=== PATIENT | female | born 1935 | race Caucasian/White ===

== ENCOUNTER 2017-06-09 07:47 | Day surgery (SDC) | payer MEDICARE ==
[~2017-06-09] VITALS: Ht 162.6 cm; Wt 90.7 kg
[~2017-06-09 07:47] MED LIST: ACCUPRIL5 MG PO; AMLODIPINE; AMLODIPINE5 MG PO; ANTIVERT OR; ARIMIDEX1 MG PO; ASPIRIN EC81 MG PO; BABY ASPIRIN81 MG OR; BENICAR HCT1 TA1; BENICAR HCT1 TA1 OR; BENICAR HCT1 TA1 PO; BENICAR40 MG PO; CEFTIN500 MG PO; COREG25 MG OR; COUMADIN2.5 MG PO; COUMADIN5 MG OR; COUMADIN5 MG PO; DIOVAN HC2 PO; ERYTHROCIN500 MG OR; FLONASE AL50 MCG/ACT; GUANFACINE1 MG PO; K-DUR/KLOR-CON10 MEQ OR; LASIX20 MG OR; LORTAB5 PO; MAG-OX 400400 MG OR; SYMBICORT1 AE1 IN; VENTOLIN HFA IN
[2017-06-09 10:45] VITALS: BP 120/60
== END 2017-06-09 10:55 | disposition home or self-care (01) ==
LOC: ENDO 07:47 → ORM 08:30 → ENDO 08:45 → ORM 08:45 → ENDO 09:45
PROVIDERS: ATTEND Surgery
PROC: 0DJD8ZZ Inspection of Lower Intestinal Tract, Via Natural or Artificial Opening Endoscopic (ICD-10-PCS; principal; 2017-06-09)
DX: R19.7 Diarrhea, unspecified (principal); K57.30 Diverticulosis of large intestine without perforation or abscess without bleeding; I48.91 Unspecified atrial fibrillation; J44.9 Chronic obstructive pulmonary disease, unspecified; I11.0 Hypertensive heart disease with heart failure; I50.9 Heart failure, unspecified; Z85.3 Personal history of malignant neoplasm of breast

== ENCOUNTER 2018-10-04 10:41 | Outpatient (REF) | payer MEDICARE ==
[~2018-10-04 10:41] MED LIST changes: +WARFARIN2.5 MG PO
== END 2018-10-04 13:28 | disposition home or self-care (01) ==
LOC: INF 10:41
PROVIDERS: ATTEND Internal Medicine Hematology & Oncology
PROC: 3C1ZX8Z Irrigation of Indwelling Device using Irrigating Substance, External Approach (ICD-10-PCS; principal; 2018-10-04)
DX: M89.9 Disorder of bone, unspecified (principal); Z45.2 Encounter for adjustment and management of vascular access device

== ENCOUNTER 2019-02-21 15:06 | Inpatient (IN) | payer MEDICARE ==
[~2019-02-21] VITALS: Ht 162.6 cm; Wt 95.8 kg
[~2019-02-21 15:06] MED LIST changes: +HYDROCO/APAP1 T11 PO; +LOSARTAN/HCT1 TA1 PO; +STIOLTO RESPIMA1 AER PO
[2019-02-27 08:07] LABS: HEMATOCRIT 36.8 % (37.0-47.0); HEMOGLOBIN 11.6 g/dl (12.0-16.0); IMMATURE GRANULOCYTES 0.2 % (0.0-5.0); MEAN CELL VOLUME 93.9 fL CALC (80.0-100.0); MEAN CORPUSCULAR HGB 29.6 pG CALC (26.0-32.0); MEAN CORPUSCULAR HGB CONC 31.5 g/L CALC (32.0-36.0); NEUT# 3.26 thou/uL (2.00-7.15); RED BLOOD COUNT 3.92 mill/uL (4.20-5.60); RED CELL DISTRI WIDTH 13.8 % (11.5-15.5)
[2019-02-27 08:24] LABS: ACT PARTIAL THROMBO TIME 25.5 SECONDS (20.0-32.5); PROTHROMBIN TIME 11.5 SECONDS (9.0-12.5)
[2019-02-27 08:29] LABS: ALKALINE PHOSPHATASE 67 u/l (38-126); ANION GAP 11 (6-22 (CALC)); BUN 15 mg/dL (8-23); BUN/CREATININE RATIO 23 (12-20 (CALC)); CARBON DIOXIDE 34 mmol/l (22-30); CHLORIDE 97 mmol/l (95-108); CREATININE 0.6 mg/dL (0.5-1.0); GFR > 60 ML/MIN (>=60 (CALC)); GFR FOR AFR.AMER. > 60 ML/MIN (>=60 (CALC)); POTASSIUM 4.2 mmol/l (3.5-5.1); SGOT/AST 29 u/l (9-36); SODIUM 137 mmol/l (137-146); TOTAL PROTEIN 6.5 g/dL (6.3-8.2)
[2019-02-27 08:36] LABS: BILIRUBIN, TOTAL 1.3 mg/dL (0.0-1.4)
[2019-02-27 08:59] LABS: INTERNATIONAL NORMALIZED RATIO 1.1 RATIO (0.7-1.3)
[2019-02-27 16:05] VITALS: BP 181/69
[2019-02-27 16:40] VITALS: BP 176/65
[2019-02-27 16:55] VITALS: BP 187/85
[2019-02-27 17:10] VITALS: BP 170/66
[2019-02-27 17:47] VITALS: BP 153/87
[2019-02-27 19:43] VITALS: BP 120/55
[2019-02-28] VITALS: BP 145/63
[2019-02-28 04:05] VITALS: BP 153/64
[2019-02-28 05:30] LABS: HEMATOCRIT 30.1 % (37.0-47.0); HEMOGLOBIN 9.3 g/dl (12.0-16.0)
[2019-02-28 05:43] LABS: INTERNATIONAL NORMALIZED RATIO 1.2 RATIO (0.7-1.3); PROTHROMBIN TIME 12.7 SECONDS (9.0-12.5)
[2019-02-28 08:01] VITALS: BP 137/58
[2019-02-28 11:10] VITALS: BP 134/50
[2019-02-28 15:23] VITALS: BP 147/57
[2019-02-28 19:19] VITALS: BP 165/59
[2019-03-01 04:04] VITALS: BP 143/59
[2019-03-01 04:41] LABS: HEMOGLOBIN 10.1 g/dl (12.0-16.0); MEAN CELL VOLUME 94.1 fL CALC (80.0-100.0); MEAN CORPUSCULAR HGB 29.7 pG CALC (26.0-32.0); MEAN CORPUSCULAR HGB CONC 31.6 g/L CALC (32.0-36.0); RED BLOOD COUNT 3.4 mill/uL (4.20-5.60); RED CELL DISTRI WIDTH 13.5 % (11.5-15.5)
[2019-03-01 04:56] LABS: INTERNATIONAL NORMALIZED RATIO 1.2 RATIO (0.7-1.3); PROTHROMBIN TIME 12.4 SECONDS (9.0-12.5)
[2019-03-01 05:01] LABS: ANION GAP 10 (6-22 (CALC)); BUN 13 mg/dL (8-23); BUN/CREATININE RATIO 24 (12-20 (CALC)); CARBON DIOXIDE 31 mmol/l (22-30); CHLORIDE 95 mmol/l (95-108); CREATININE 0.5 mg/dL (0.5-1.0); GFR > 60 ML/MIN (>=60 (CALC)); GFR FOR AFR.AMER. > 60 ML/MIN (>=60 (CALC)); SODIUM 132 mmol/l (137-146)
[2019-03-01 09:04] VITALS: BP 123/60
[2019-03-01 11:33] VITALS: BP 110/40
[2019-03-01 16:00] VITALS: BP 155/59
[2019-03-01 19:32] VITALS: BP 124/58
[2019-03-01 21:27] VITALS: BP 139/67
[2019-03-02 00:18] VITALS: BP 118/53
[2019-03-02 05:03] VITALS: BP 115/56
[2019-03-02 05:10] LABS: HEMATOCRIT 30.4 % (37.0-47.0); HEMOGLOBIN 9.5 g/dl (12.0-16.0)
[2019-03-02 05:19] LABS: INTERNATIONAL NORMALIZED RATIO 1.3 RATIO (0.7-1.3); PROTHROMBIN TIME 13.5 SECONDS (9.0-12.5)
[2019-03-02 08:43] VITALS: BP 133/65
[2019-03-02 11:05] VITALS: BP 143/68
[2019-03-02 15:43] VITALS: BP 145/56
[2019-03-02 19:10] VITALS: BP 147/63
[2019-03-03 00:42] VITALS: BP 115/55
[2019-03-03 04:20] VITALS: BP 142/59
[2019-03-03 06:02] LABS: HEMATOCRIT 28.8 % (37.0-47.0); HEMOGLOBIN 9.2 g/dl (12.0-16.0); MEAN CELL VOLUME 92.9 fL CALC (80.0-100.0); MEAN CORPUSCULAR HGB 29.7 pG CALC (26.0-32.0); MEAN CORPUSCULAR HGB CONC 31.9 g/L CALC (32.0-36.0); RED BLOOD COUNT 3.1 mill/uL (4.20-5.60); RED CELL DISTRI WIDTH 13.6 % (11.5-15.5)
[2019-03-03 06:07] LABS: INTERNATIONAL NORMALIZED RATIO 1.5 RATIO (0.7-1.3)
[2019-03-03 06:09] LABS: ANION GAP 11 (6-22 (CALC)); BUN 16 mg/dL (8-23); BUN/CREATININE RATIO 24 (12-20 (CALC)); CARBON DIOXIDE 34 mmol/l (22-30); CHLORIDE 89 mmol/l (95-108); CREATININE 0.7 mg/dL (0.5-1.0); GFR > 60 ML/MIN (>=60 (CALC)); GFR FOR AFR.AMER. > 60 ML/MIN (>=60 (CALC)); SODIUM 130 mmol/l (137-146)
[2019-03-03 08:17] VITALS: BP 148/62
[2019-03-03] MEDS ORDERED: PERCOCET 10/31 COMBO PO (10:36)
[2019-03-03 15:31] VITALS: BP 164/68
[2019-03-03 19:09] VITALS: BP 144/56
[2019-03-04 04:00] VITALS: BP 140/62
[2019-03-04 10:00] VITALS: BP 115/55
[2019-03-04 11:25] LABS: HEMATOCRIT 29.5 % (37.0-47.0); HEMOGLOBIN 9.3 g/dl (12.0-16.0); IMMATURE GRANULOCYTES 0.3 % (0.0-5.0); MEAN CELL VOLUME 92.8 fL CALC (80.0-100.0); MEAN CORPUSCULAR HGB 29.2 pG CALC (26.0-32.0); MEAN CORPUSCULAR HGB CONC 31.5 g/L CALC (32.0-36.0); NEUT# 4.22 thou/uL (2.00-7.15); RED BLOOD COUNT 3.18 mill/uL (4.20-5.60); RED CELL DISTRI WIDTH 13.5 % (11.5-15.5)
[2019-03-04 11:45] LABS: INTERNATIONAL NORMALIZED RATIO 1.4 RATIO (0.7-1.3); PROTHROMBIN TIME 14.1 SECONDS (9.0-12.5)
[2019-03-04 11:47] LABS: ANION GAP 12 (6-22 (CALC)); BUN 20 mg/dL (8-23); BUN/CREATININE RATIO 39 (12-20 (CALC)); CARBON DIOXIDE 37 mmol/l (22-30); CHLORIDE 85 mmol/l (95-108); CREATININE 0.5 mg/dL (0.5-1.0); GFR > 60 ML/MIN (>=60 (CALC)); GFR FOR AFR.AMER. > 60 ML/MIN (>=60 (CALC)); SODIUM 130 mmol/l (137-146)
== END 2019-03-04 14:26 | DRG 470 ==
LOC: MS2 02-27 07:17
PROVIDERS: Nurse Practitioner Family; ADMIT Orthopaedic Surgery; ATTEND Internal Medicine
PROC: 0SRD0J9 Replacement of Left Knee Joint with Synthetic Substitute, Cemented, Open Approach (ICD-10-PCS; principal; 2019-02-27)
PROC: 0H9LXZZ Drainage of Left Lower Leg Skin, External Approach (ICD-10-PCS; 2019-03-03)
DX: M17.12 Unilateral primary osteoarthritis, left knee (principal); I10 Essential (primary) hypertension; I48.91 Unspecified atrial fibrillation; J44.9 Chronic obstructive pulmonary disease, unspecified; S80.222A Blister (nonthermal), left knee, initial encounter; Y84.8 Other medical procedures as the cause of abnormal reaction of the patient, or of later complication, without mention of misadventure at the time of the procedure; Z85.3 Personal history of malignant neoplasm of breast; Z90.12 Acquired absence of left breast and nipple; Z79.01 Long term (current) use of anticoagulants
CPT/HCPCS: J0131

== ENCOUNTER 2021-04-11 13:05 | Outpatient (REF) | payer MEDICARE ==
[~2021-04-11 13:05] MED LIST changes: +PERCOCET 10/31 COMBO PO
== END 2021-04-11 14:04 | disposition home or self-care (01) ==
LOC: INF 13:05 → MSOP 13:05
PROVIDERS: ATTEND Nurse Practitioner
DX: Z45.2 Encounter for adjustment and management of vascular access device (principal); M81.0 Age-related osteoporosis without current pathological fracture
CPT/HCPCS: J0897

== ENCOUNTER 2021-10-04 14:43 | Observation (INO) | payer MEDICARE ==
[~2021-10-04] VITALS: Ht 162.6 cm; Wt 90.0 kg
[~2021-10-04 14:43] MED LIST changes: -COREG25 MG OR; +COREG25 MG PO; +SPIRONOLACTONE25 MG PO; +STIOLTO RESPIMA1 AER IN; +TRAMADOL HCL50 MG PO; -WARFARIN2.5 MG PO; +WARFARIN5 MG PO
--- NOTE | 2021-10-04 14:50 | NUR ---
PT TO ROOM VIA WC WITH FAMILY
[2021-10-04] MEDS ORDERED: TRELEGY ELLIPTA1 AER IN (15:02)
--- NOTE | 2021-10-04 15:45 | NUR ---
PT PLACED ON OXYGEN 2L/MIN VIA NC TO MAINTAIN SAT ABOVE 90%
--- NOTE | 2021-10-04 15:55 | NUR ---
PT ASSISTED TO BSC TO PROVIDE URINE SAMPLE. PT WITH CALL LIGHT IN REACH AND INSTRUCTED TO CALL WHEN FINISHED. PT WITH DAUGHTER AT THE BEDSIDE.
[2021-10-04 15:59] LABS: IMMATURE GRANULOCYTES 0.2 % (0.0-5.0); MEAN CORPUSCULAR HGB CONC 31.9 g/dL CAL (32.0-36.0); RED BLOOD COUNT 3.81 mill/uL (4.20-5.60); RED CELL DISTRI WIDTH 12.9 % (11.5-15.5)
[2021-10-04 16:00] LABS: HEMATOCRIT 38.2 % (37.0-47.0); HEMOGLOBIN 12.2 g/dl (12.0-16.0); MEAN CELL VOLUME 100.3 fL CALC (80.0-100.0)
[2021-10-04 16:14] LABS: ALBUMIN 3.8 g/dL (3.2-5.0); BILIRUBIN, TOTAL 1.2 mg/dL (0.0-1.4); CREATININE 1.1 mg/dL (0.5-1.0); MAGNESIUM 1.8 mg/dL (1.6-2.3); POTASSIUM 4.7 mmol/l (3.5-5.1); TOTAL PROTEIN 6.7 g/dL (6.3-8.2)
[2021-10-04 16:23] LABS: INTERNATIONAL NORMALIZED RATIO 3.1 RATIO (0.7-1.3); PROTHROMBIN TIME 29.8 SECONDS (9.0-12.5)
[2021-10-04 17:03] LABS: URINE BILIRUBIN - DIPSTICK NEGATIVE (NEGATIVE); URINE BLOOD DIPSTICK NEGATIVE (NEGATIVE); URINE COLOR YELLOW; URINE GLUCOSE - DIPSTICK NEGATIVE (NEGATIVE); URINE KETONE 15 mg/dL (NEGATIVE); URINE LEUK ESTERASE NEGATIVE (NEGATIVE); URINE NITRITE - DIPSTICK NEGATIVE (Negative); URINE PH 6.5 (4.5-8.0); URINE PROTEIN - DIPSTICK NEGATIVE (NEG-TRACE); URINE SPECIFIC GRAVITY 1.025; URINE UROBILINOGEN - DIPSTICK 0.2 E.U./dL (0.2)
--- NOTE | 2021-10-04 20:09 | NUR ---
Reassessment of patient completed. No distress noted.
--- NOTE | 2021-10-04 20:38 | NUR ---
PT ARRIVED TO [facility] VIA STRETCHER ACCOMPANIED ER NURSE, PT ALERT AND ORIENTED X3, ORIENTED PT TO ROOM AND CALL LIGHT, DISCUSSED POC, PT VOICES NO NEEDS OR COMPLAINTS AT THIS TIME. IV FLUIDS INITATED. INCENTIVE SPIROMETER BROUGHT TO BEDSIDE AND TEACHING PROVIDED, PT NOT ABLE TO REACH 500ML NIKI, ENCOURAGED IT'S USE. SKIN INTACT. ADMISSION ASSESSMENT COMPLETED, PT ON 02 3L NC, TEDS APPLIED. CALL LIGHT IN REACH,CONTINUE TO MONITOR.
[2021-10-04 20:45] VITALS: BP 135/59
--- NOTE | 2021-10-04 20:45 | NUR ---
REPORT CALLED TO FLOOR TRANSFERRED PT WITHOUT INCIDENCE
[2021-10-05] VITALS (7 sets, daily range): BP systolic 94–158; BP diastolic 36–67
--- NOTE | 2021-10-05 | NUR ---
PT RESTING IN BED WITH EYES CLOSED, NO SIGNS OF DISTRESS NOTED, RESP EVEN AND UNLABORED. CALL LIGHT IN REACH,CONTINUE TO MONITOR.
--- NOTE | 2021-10-05 04:00 | NUR ---
PT RESTING IN BED, NO SIGNS OF DISTRESS NOTED, VOICES NO NEEDS OR COMPLAINTS AT THIS TIME, WARM BLANKET PROVIDED. CALL LIGHT IN REACH,CONTINUE TO MONITOR.
[2021-10-05 05:30] LABS: HEMATOCRIT 35.5 % (37.0-47.0); HEMOGLOBIN 11.3 g/dl (12.0-16.0); MEAN CELL VOLUME 100.6 fL CALC (80.0-100.0); MEAN CORPUSCULAR HGB CONC 31.8 g/dL CAL (32.0-36.0); RED BLOOD COUNT 3.53 mill/uL (4.20-5.60); RED CELL DISTRI WIDTH 13.1 % (11.5-15.5)
[2021-10-05 05:41] LABS: CREATININE 1.1 mg/dL (0.5-1.0); POTASSIUM 4.3 mmol/l (3.5-5.1)
--- NOTE | 2021-10-05 08:00 | NUR ---
SHIFT CHANGE REPORT, PT AWAKE ALERT AND ORIENTED RESTING IN BED, NO C/O DISCOMFORT, O2 @ 3L VIA NC IN PLACE, TELE MONITOR IN PLACE, IVF INFUSING, ASSISTED TO BSC PER REQUEST, CALL LIGHT IN REACH.
[2021-10-05 08:51] LABS: INTERNATIONAL NORMALIZED RATIO 2.9 RATIO (0.7-1.3); PROTHROMBIN TIME 28.2 SECONDS (9.0-12.5)
--- NOTE | 2021-10-05 12:43 | NUR ---
RELAXING IN BED, CONCERNED ABOUT HER CANCER MED WHICH SHE HAS NOT TAKEN SINCE YESTERDAY, ADVISED NURSE WILL INFORM MD OF HER CONCERN AND ALSO FOR PT TO HAVE FAMILY MEMBER BRING IN MEDS SO THEY CAN BE DOCUMENTED WHEN ADMINISTERED HERE.
--- NOTE | 2021-10-05 16:00 | NUR ---
RESTING IN BED FAMILY BROUGHT IN CANCER MED, ORDERED PT MAY TAKE HER OWN MED, MED WILL BE SENT TO PHARMACY IN AM TO BE BARCODED, PT INFORMED OF PROTOCOL WITH HOME MEDS AND STATES UNDERSTANDING.
--- NOTE | 2021-10-05 19:21 | NUR ---
PATIENT ALERT ORIENTED, HOOKED ON O2 @ 3LPM VIA NC, BREATHING UNLABORED, PATIENT ONE ASSIST, ASSISTED TO BEDSIDE COMMODE.CALL LIGHT AT REACH.
--- NOTE | 2021-10-05 20:00 | NUR ---
PATIENT RESTING IN BED, WITH ONGOING IV NS @ 10CC/HR NS INFUSING ON RAC, REMAINS ON TELE AFIB 55, DENIES PAIN AT THIS TIME, USING SPIROMETER 500 INSPIRATORY VOLUME, ACTIVE BOWEL SOUNDS, LBM 10/05, ON O2 @ 3LPM VIA NC, CALL LIGHT AT REACH.
--- NOTE | 2021-10-05 23:03 | NUR ---
PATIENT C/O PAIN ON LOWER BACK, PS 8/10, PRN TYLENOL GIVEN, ASSISTED TO BED SIDE COMMODE, AND ASSISTED BACK IN BED, PATIENT REMAINS ON 2LPM VIA NC CALL LIGHT AT REACH.
[2021-10-06 03:53] VITALS: BP 142/69
--- NOTE | 2021-10-06 04:10 | NUR ---
TECH IN ROOM AT THIS TIME, BLOOD DRAWN, VITAL SIGNS TAKEN AND RECORDED, PATIENT AWAKE, BREATHING UNLBARED, NOT IN DISTRESS CALL LIGHT AT REACH.
[2021-10-06 05:35] LABS: BUN 27 mg/dL (8-23); BUN/CREATININE RATIO 33 (12-20 (CALC)); CARBON DIOXIDE 27 mmol/l (22-30); CHLORIDE 102 mmol/l (95-108); CREATININE 0.8 mg/dL (0.5-1.0); GFR > 60 ML/MIN (>=60 (CALC)); GFR FOR AFR.AMER. > 60 ML/MIN (>=60 (CALC)); SODIUM 133 mmol/l (137-146)
[2021-10-06 05:37] LABS: ANION GAP 8 (6-22 (CALC)); POTASSIUM 4.1 mmol/l (3.5-5.1)
--- NOTE | 2021-10-06 07:31 | NUR ---
Patient is screened for PT intervention and may benefit from consult if MD agrees
[2021-10-06 07:59] VITALS: BP 150/65
--- NOTE | 2021-10-06 08:30 | NUR ---
SHIFT CHANGE REPORT, PT AWAKE ALERT AND ORIENTED, DENIES PAIN AT THIS TIME, NO NEW COMPLAINS, HAVING MEAL, O2 @ 2L VIA NC IN PLACE,IVF INFUSING, TELE MONITOR IN PLACE, CALL MEEKS IN REACH AND BED LOCKED IN LOWEST POSITION.
[2021-10-06 08:34] LABS: INTERNATIONAL NORMALIZED RATIO 2.4 RATIO (0.7-1.3); PROTHROMBIN TIME 23.5 SECONDS (9.0-12.5)
[2021-10-06 10:38] VITALS: BP 161/69
--- NOTE | 2021-10-06 11:07 | NUR ---
nurse notified of patient blood pressure 161/69.
--- NOTE | 2021-10-06 12:04 | NUR ---
SITTING UP AT BEDSIDE HAVING MEAL AT THIS TIME, NO C/O DISCOMFORT, CALL MEEKS IN REACH.
[2021-10-06] MEDS ORDERED: LEVAQUIN750 M1 PO (13:28)
--- NOTE | 2021-10-06 16:15 | NUR ---
Discharge instructions given. Patient verbalizes understanding of same. Discharged in fair condition via Wheelchair to Home with family. All belongings sent with pt. PT RECEIVED OXYGEN FOR HOME USE AND LEFT WITH DAUGHTER.
== END 2021-10-06 15:10 | disposition home health service (06) ==
LOC: ED 14:43 → ED-I 18:00 → ED 18:15 → MS2 18:16
PROVIDERS: ADMIT Internal Medicine; ATTEND Internal Medicine
DX: J18.9 Pneumonia, unspecified organism (principal); J44.0 Chronic obstructive pulmonary disease with (acute) lower respiratory infection; R09.02 Hypoxemia; I11.0 Hypertensive heart disease with heart failure; I50.9 Heart failure, unspecified; I48.91 Unspecified atrial fibrillation; T38.0X6A Underdosing of glucocorticoids and synthetic analogues, initial encounter; Z91.128 Patient's intentional underdosing of medication regimen for other reason; Z79.01 Long term (current) use of anticoagulants; Z85.3 Personal history of malignant neoplasm of breast; Z90.12 Acquired absence of left breast and nipple; Z20.822 Contact with and (suspected) exposure to COVID-19
CPT/HCPCS: G0378; J1956

== ENCOUNTER 2022-08-31 07:07 | Day surgery (SDC) | payer MEDICARE ==
[~2022-08-31] VITALS: Ht 162.6 cm; Wt 86.2 kg
[~2022-08-31 07:07] MED LIST changes: +LEVAQUIN750 M1 PO; +TRELEGY ELLIPTA1 AER IN
[2022-08-31 09:22] VITALS: BP 137/67
== END 2022-08-31 09:45 | disposition home or self-care (01) ==
LOC: ENDO 07:07 → ORM 13:30
PROVIDERS: ATTEND Internal Medicine Gastroenterology
PROC: 0DBK8ZX Excision of Ascending Colon, Via Natural or Artificial Opening Endoscopic, Diagnostic (ICD-10-PCS; principal; 2022-08-31)
PROC: 0DBP8ZX Excision of Rectum, Via Natural or Artificial Opening Endoscopic, Diagnostic (ICD-10-PCS; 2022-08-31)
PROC: 0DBH8ZX Excision of Cecum, Via Natural or Artificial Opening Endoscopic, Diagnostic (ICD-10-PCS; 2022-08-31)
DX: D12.2 Benign neoplasm of ascending colon (principal); D12.0 Benign neoplasm of cecum; K62.1 Rectal polyp; K57.30 Diverticulosis of large intestine without perforation or abscess without bleeding; K64.8 Other hemorrhoids; I11.0 Hypertensive heart disease with heart failure; I50.22 Chronic systolic (congestive) heart failure; I48.91 Unspecified atrial fibrillation; Z86.010 Personal history of colon polyps; Z79.01 Long term (current) use of anticoagulants

== ENCOUNTER 2022-10-26 07:13 | Day surgery (SDC) | payer MEDICARE ==
[~2022-10-26] VITALS: Ht 167.6 cm; Wt 86.2 kg
[~2022-10-26 07:13] MED LIST changes: +PROAIR HFA IN
== END 2022-10-26 07:45 | disposition home or self-care (01) ==
LOC: ORM 07:13
PROVIDERS: ATTEND Orthopaedic Surgery
DX: M19.011 Primary osteoarthritis, right shoulder (principal); L97.929 Non-pressure chronic ulcer of unspecified part of left lower leg with unspecified severity; Z53.09 Procedure and treatment not carried out because of other contraindication; I11.0 Hypertensive heart disease with heart failure; I50.22 Chronic systolic (congestive) heart failure; I48.91 Unspecified atrial fibrillation; J44.9 Chronic obstructive pulmonary disease, unspecified; G47.30 Sleep apnea, unspecified; Z79.01 Long term (current) use of anticoagulants

== ENCOUNTER 2023-03-03 10:39 | Emergency (ER) | payer MEDICARE ==
[~2023-03-03] VITALS: Ht 167.6 cm; Wt 85.0 kg
[2023-03-03] VITALS (8 sets, daily range): BP systolic 104–133; BP diastolic 47–77
[2023-03-03] MEDS ORDERED: MULTIVITAMI9 PO (11:02)
[2023-03-03] MEDS ORDERED: SPIRIVA RE2.5 MCG/AC (11:02)
[2023-03-03] MEDS ORDERED: MYRBETRIQ25 MG (11:03)
[2023-03-03] MEDS ORDERED: TRAMADOL HCL50 MG PO (11:04)
[2023-03-03] MEDS ORDERED: ABILIFY10 MG PO (11:05)
== END 2023-03-03 12:50 | disposition home or self-care (01) ==
LOC: ED 10:39
DX: M25.511 Pain in right shoulder (principal); I11.0 Hypertensive heart disease with heart failure; I50.9 Heart failure, unspecified; J44.9 Chronic obstructive pulmonary disease, unspecified; I48.91 Unspecified atrial fibrillation

== ENCOUNTER 2023-05-13 10:51 | Emergency (ER) | payer MEDICARE ==
[~2023-05-13] VITALS: Ht 167.6 cm; Wt 82.0 kg
[2023-05-13] VITALS (21 sets, daily range): BP systolic 115–177; BP diastolic 52–98
[~2023-05-13 10:51] MED LIST changes: +ABILIFY10 MG PO; +MULTIVITAMI9 PO; +MYRBETRIQ25 MG; +SPIRIVA RE2.5 MCG/AC
[2023-05-13 11:29] LABS: BASO% 0.4 % (0-3); HEMATOCRIT 33.2 % (37.0-47.0); HEMOGLOBIN 10.5 g/dl (12.0-16.0); IMMATURE GRANULOCYTES 0.2 % (0.0-5.0); LYMPH% 19.5 % (15-41); MEAN CELL VOLUME 102.5 fL CALC (80.0-100.0); MEAN CORPUSCULAR HGB 32.4 pG CALC (26.0-32.0); MEAN CORPUSCULAR HGB CONC 31.6 g/dL CAL (32.0-36.0); MONO% 9.7 % (2-13); NEUT# 3.39 thou/uL (2.00-7.15); NEUT% 68.2 % (42-76); RED BLOOD COUNT 3.24 mill/uL (4.20-5.60); RED CELL DISTRI WIDTH 13.9 % (11.5-15.5)
[2023-05-13 11:46] LABS: ALBUMIN 3.6 g/dL (3.2-5.0); ALKALINE PHOSPHATASE 52 u/l (38-126); BILIRUBIN, TOTAL 1.4 mg/dL (0.02-1.3); BUN 28 mg/dL (8-23); BUN/CREATININE RATIO 25 (12-20 (CALC)); CHLORIDE 97 mmol/l (95-108); CREATININE 1.1 mg/dL (0.5-1.0); GFR FOR AFR.AMER. 57 ML/MIN (>=60 (CALC)); GFR OTHER RACES 47 ML/MIN (>=60 (CALC)); POTASSIUM 4.1 mmol/l (3.5-5.1); SGOT/AST 37 u/l (9-36); SODIUM 135 mmol/l (137-146); TOTAL PROTEIN 6.4 g/dL (6.3-8.2)
[2023-05-13 11:51] LABS: ANION GAP 8 (6-22 (CALC)); CARBON DIOXIDE 34 mmol/l (22-30); PROTHROMBIN TIME 18.8 SECONDS (9.0-12.5)
[2023-05-13 11:58] LABS: D-DIMER 1.49 mg/L (0.19-0.60)
[2023-05-13 16:04] LABS: URINE BILIRUBIN - DIPSTICK Negative (NEGATIVE); URINE BLOOD DIPSTICK Negative (NEGATIVE); URINE COLOR Yellow; URINE GLUCOSE - DIPSTICK Negative (NEGATIVE); URINE KETONE Negative (NEGATIVE); URINE LEUK ESTERASE Negative (NEGATIVE); URINE NITRITE - DIPSTICK Negative (Negative); URINE PROTEIN - DIPSTICK Negative (NEG-TRACE); URINE SPECIFIC GRAVITY 1.015; URINE UROBILINOGEN - DIPSTICK 0.2 E.U./dL (0.2)
== END 2023-05-13 16:46 | disposition home or self-care (01) ==
LOC: ED 10:51
PROVIDERS: Family Medicine
DX: I11.0 Hypertensive heart disease with heart failure (principal); I50.9 Heart failure, unspecified; J44.9 Chronic obstructive pulmonary disease, unspecified; I48.91 Unspecified atrial fibrillation; Z95.828 Presence of other vascular implants and grafts; Z85.9 Personal history of malignant neoplasm, unspecified; R06.02 Shortness of breath
CPT/HCPCS: Q9967

== ENCOUNTER 2023-07-26 13:07 | Observation (INO) | payer MEDICARE ==
[~2023-07-26] VITALS: Ht 167.6 cm; Wt 73.0 kg
[2023-07-26] VITALS (14 sets, daily range): BP systolic 102–163; BP diastolic 38–75
[~2023-07-26 13:07] MED LIST changes: -MYRBETRIQ25 MG; +MYRBETRIQ25 MG PO; -PROAIR HFA IN; -SPIRIVA RE2.5 MCG/AC; +VENTOLIN HFA108 MCG IN
[2023-07-26 15:17] LABS: BASO% 0.2 % (0-3); EOS% 1.8 % (0-8); HEMOGLOBIN 11.1 g/dl (12.0-16.0); IMMATURE GRANULOCYTES 0.2 % (0.0-5.0); LYMPH% 16.6 % (15-41); MEAN CELL VOLUME 99.2 fL CALC (80.0-100.0); MEAN CORPUSCULAR HGB 31.4 pG CALC (26.0-32.0); MEAN CORPUSCULAR HGB CONC 31.7 g/dL CAL (32.0-36.0); MONO% 11.4 % (2-13); NEUT# 3.19 thou/uL (2.00-7.15); NEUT% 69.8 % (42-76); RED BLOOD COUNT 3.53 mill/uL (4.20-5.60); RED CELL DISTRI WIDTH 12.9 % (11.5-15.5)
[2023-07-26 15:32] LABS: ALBUMIN 3.9 g/dL (3.2-5.0); ANION GAP 11 (6-22 (CALC)); BILIRUBIN, TOTAL 1.3 mg/dL (0.02-1.3); BUN 42 mg/dL (8-23); BUN/CREATININE RATIO 41 (12-20 (CALC)); CARBON DIOXIDE 32 mmol/l (22-30); CHLORIDE 95 mmol/l (95-108); GFR FOR AFR.AMER. > 60 ML/MIN (>=60 (CALC)); GFR OTHER RACES 53 ML/MIN (>=60 (CALC)); POTASSIUM 4.6 mmol/l (3.5-5.1); SGOT/AST 35 u/l (9-36); SODIUM 132 mmol/l (137-146); TOTAL PROTEIN 6.1 g/dL (6.3-8.2)
[2023-07-26 15:38] LABS: ALKALINE PHOSPHATASE 121 u/l (38-126)
[2023-07-26 16:33] LABS: URINE BILIRUBIN - DIPSTICK Negative (NEGATIVE); URINE BLOOD DIPSTICK Negative (NEGATIVE); URINE GLUCOSE - DIPSTICK Negative (NEGATIVE); URINE KETONE Trace mg/dL (NEGATIVE); URINE LEUK ESTERASE Negative (NEGATIVE); URINE NITRITE - DIPSTICK Negative (Negative); URINE PROTEIN - DIPSTICK 30 mg/dL (NEG-TRACE); URINE SPECIFIC GRAVITY 1.025
[2023-07-26 16:36] LABS: URINE COLOR Yellow; URINE RBC 0-2 RBC/hpf (0-5); URINE SQUAMOUS EPITHELIAL CELL FEW EPI/hpf (0-FEW); URINE WBC 0-2 WBC/hpf (0-5)
[2023-07-26 17:27] LABS: PROTHROMBIN TIME > 170.9 SECONDS (9.0-12.5)
[2023-07-26] MEDS ORDERED: MAGNESIUM HYDROXIDE 30 ML UDC PO PRN (18:55)
[2023-07-26] MEDS ORDERED: SODIUM CHLORIDE 0.9% 1,000 ML IV PRN (18:55)
[2023-07-26] MEDS ORDERED: ACETAMINOPHEN 325 MG/TAB PO PRN (18:55)
[2023-07-26] MEDS ORDERED: Pantoprazole Sodium 40 MG VIAL (Protonix) IV ONE (19:05)
[2023-07-26] MEDS ORDERED: ALBUTEROL SULFATE 8 GM INH IN PRN (19:10)
[2023-07-26] MEDS ORDERED: traMADol HCL 50 MG/TAB PO PRN (19:15)
[2023-07-26] MEDS ORDERED: IPRATROPIUM-Albuterol 0.5MG-2.5MG/3 ML NEB PRN (19:15)
[2023-07-26] MEDS ORDERED: CARVEDILOL 25 MG/TAB PO SCH (21:00)
[2023-07-27] VITALS (7 sets, daily range): BP systolic 96–143; BP diastolic 35–54
[2023-07-27 07:03] LABS: BASO% 0.3 % (0-3); EOS% 1.9 % (0-8); HEMATOCRIT 32.6 % (37.0-47.0); HEMOGLOBIN 10.5 g/dl (12.0-16.0); IMMATURE GRANULOCYTES 0.2 % (0.0-5.0); LYMPH% 11.9 % (15-41); MEAN CELL VOLUME 99.4 fL CALC (80.0-100.0); MEAN CORPUSCULAR HGB CONC 32.2 g/dL CAL (32.0-36.0); MONO% 10.5 % (2-13); NEUT# 4.42 thou/uL (2.00-7.15); NEUT% 75.2 % (42-76); RED BLOOD COUNT 3.28 mill/uL (4.20-5.60); RED CELL DISTRI WIDTH 13.1 % (11.5-15.5)
[2023-07-27 07:32] LABS: BILIRUBIN, TOTAL 1.2 mg/dL (0.02-1.3); CREATININE 1.2 mg/dL (0.5-1.0); MAGNESIUM 1.5 mg/dL (1.6-2.3); POTASSIUM 4.7 mmol/l (3.5-5.1); TOTAL PROTEIN 5.2 g/dL (6.3-8.2)
[2023-07-27 08:02] LABS: ACT PARTIAL THROMBO TIME 57.2 SECONDS (20.0-32.5)
[2023-07-27 08:07] LABS: PROTHROMBIN TIME 82.5 SECONDS (9.0-12.5)
[2023-07-27 08:08] LABS: INTERNATIONAL NORMALIZED RATIO 9.6 RATIO (0.7-1.3)
[2023-07-27] MEDS ORDERED: PATIENT' OWN MED 1 EA DOSE PO PRN (08:25)
[2023-07-27] MEDS ORDERED: SPIRONOLACTONE 25 MG/TAB PO SCH (09:00)
[2023-07-27] MEDS ORDERED: PHYTONADIONE 5 MG/TAB PO SCH (10:00)
[2023-07-27] MEDS ORDERED: MAGNESIUM SULFATE HEPTAHYDRATE 50 ML IV SCH (10:00)
[2023-07-27 13:36] LABS: EOS% 1.6 % (0-8); HEMATOCRIT 31.7 % (37.0-47.0); HEMOGLOBIN 10.2 g/dl (12.0-16.0); IMMATURE GRANULOCYTES 0.3 % (0.0-5.0); LYMPH% 12.4 % (15-41); MEAN CELL VOLUME 99.1 fL CALC (80.0-100.0); MEAN CORPUSCULAR HGB 31.9 pG CALC (26.0-32.0); MEAN CORPUSCULAR HGB CONC 32.2 g/dL CAL (32.0-36.0); MONO% 9.9 % (2-13); NEUT# 4.85 thou/uL (2.00-7.15); NEUT% 75.8 % (42-76); RED BLOOD COUNT 3.2 mill/uL (4.20-5.60)
[2023-07-27] MEDS ORDERED: PATIENT' OWN MED 1 EA DOSE PO SCH ×2 (15:30→21:00)
[2023-07-27 19:52] LABS: BASO% 0.3 % (0-3); EOS% 1.9 % (0-8); HEMATOCRIT 32.1 % (37.0-47.0); HEMOGLOBIN 10.2 g/dl (12.0-16.0); IMMATURE GRANULOCYTES 0.2 % (0.0-5.0); LYMPH% 11.9 % (15-41); MEAN CELL VOLUME 99.4 fL CALC (80.0-100.0); MEAN CORPUSCULAR HGB 31.6 pG CALC (26.0-32.0); MEAN CORPUSCULAR HGB CONC 31.8 g/dL CAL (32.0-36.0); MONO% 9.6 % (2-13); NEUT# 4.42 thou/uL (2.00-7.15); NEUT% 76.1 % (42-76); RED BLOOD COUNT 3.23 mill/uL (4.20-5.60); RED CELL DISTRI WIDTH 13.2 % (11.5-15.5)
[2023-07-28 04:00] VITALS: BP 132/52
[2023-07-28 04:25] VITALS: BP 132/52
[2023-07-28 04:37] LABS: BASO% 0.2 % (0-3); EOS% 2.5 % (0-8); HEMATOCRIT 31.6 % (37.0-47.0); HEMOGLOBIN 10.1 g/dl (12.0-16.0); MEAN CELL VOLUME 100.3 fL CALC (80.0-100.0); MEAN CORPUSCULAR HGB 32.1 pG CALC (26.0-32.0); MONO% 9.7 % (2-13); NEUT# 3.73 thou/uL (2.00-7.15); NEUT% 72.6 % (42-76); RED BLOOD COUNT 3.15 mill/uL (4.20-5.60); RED CELL DISTRI WIDTH 13.2 % (11.5-15.5)
[2023-07-28 04:49] LABS: ALBUMIN 2.9 g/dL (3.2-5.0); ALKALINE PHOSPHATASE 93 u/l (38-126); ANION GAP 9 (6-22 (CALC)); BILIRUBIN, TOTAL 1.3 mg/dL (0.02-1.3); BUN 26 mg/dL (8-23); BUN/CREATININE RATIO 29 (12-20 (CALC)); CARBON DIOXIDE 28 mmol/l (22-30); CHLORIDE 97 mmol/l (95-108); CREATININE 0.9 mg/dL (0.5-1.0); GFR FOR AFR.AMER. > 60 ML/MIN (>=60 (CALC)); GFR OTHER RACES 60 ML/MIN (>=60 (CALC)); MAGNESIUM 1.8 mg/dL (1.6-2.3); POTASSIUM 4.4 mmol/l (3.5-5.1); SGOT/AST 26 u/l (9-36); SODIUM 130 mmol/l (137-146)
[2023-07-28 04:54] LABS: INTERNATIONAL NORMALIZED RATIO 2.1 RATIO (0.7-1.3); PROTHROMBIN TIME 19.2 SECONDS (9.0-12.5)
[2023-07-28 07:27] VITALS: BP 150/52
[2023-07-28 11:00] VITALS: BP 126/46
[2023-07-28 12:23] LABS: BASO% 0.2 % (0-3); EOS% 2.2 % (0-8); HEMATOCRIT 31.5 % (37.0-47.0); HEMOGLOBIN 10.1 g/dl (12.0-16.0); IMMATURE GRANULOCYTES 0.4 % (0.0-5.0); LYMPH% 12.2 % (15-41); MEAN CELL VOLUME 100.3 fL CALC (80.0-100.0); MEAN CORPUSCULAR HGB 32.2 pG CALC (26.0-32.0); MEAN CORPUSCULAR HGB CONC 32.1 g/dL CAL (32.0-36.0); MONO% 9.6 % (2-13); NEUT# 3.76 thou/uL (2.00-7.15); NEUT% 75.4 % (42-76); RED BLOOD COUNT 3.14 mill/uL (4.20-5.60); RED CELL DISTRI WIDTH 13.1 % (11.5-15.5)
[2023-07-28 15:35] VITALS: BP 155/49
[2023-07-28 18:41] LABS: BASO% 0.2 % (0-3); HEMATOCRIT 32.1 % (37.0-47.0); HEMOGLOBIN 10.4 g/dl (12.0-16.0); IMMATURE GRANULOCYTES 0.6 % (0.0-5.0); MEAN CELL VOLUME 99.7 fL CALC (80.0-100.0); MEAN CORPUSCULAR HGB 32.3 pG CALC (26.0-32.0); MEAN CORPUSCULAR HGB CONC 32.4 g/dL CAL (32.0-36.0); MONO% 8.1 % (2-13); NEUT# 3.85 thou/uL (2.00-7.15); NEUT% 76.1 % (42-76); RED BLOOD COUNT 3.22 mill/uL (4.20-5.60); RED CELL DISTRI WIDTH 12.9 % (11.5-15.5)
[2023-07-28 20:09] VITALS: BP 141/54
[2023-07-28] MEDS ORDERED: PATIENT' OWN MED 1 EA DOSE PO SCH (21:00)
[2023-07-29 00:52] VITALS: BP 149/52
[2023-07-29 01:13] LABS: BASO% 0.2 % (0-3); EOS% 2.8 % (0-8); HEMATOCRIT 29.6 % (37.0-47.0); HEMOGLOBIN 9.5 g/dl (12.0-16.0); IMMATURE GRANULOCYTES 1.2 % (0.0-5.0); LYMPH% 15.2 % (15-41); MEAN CELL VOLUME 99.3 fL CALC (80.0-100.0); MEAN CORPUSCULAR HGB 31.9 pG CALC (26.0-32.0); MEAN CORPUSCULAR HGB CONC 32.1 g/dL CAL (32.0-36.0); MONO% 10.1 % (2-13); NEUT# 3.06 thou/uL (2.00-7.15); NEUT% 70.5 % (42-76); RED BLOOD COUNT 2.98 mill/uL (4.20-5.60)
[2023-07-29 04:48] VITALS: BP 135/53
[2023-07-29 06:45] VITALS: BP 144/55
[2023-07-29 06:50] LABS: BASO% 0.4 % (0-3); EOS% 2.6 % (0-8); HEMATOCRIT 32.5 % (37.0-47.0); HEMOGLOBIN 10.5 g/dl (12.0-16.0); IMMATURE GRANULOCYTES 0.9 % (0.0-5.0); LYMPH% 15.8 % (15-41); MEAN CELL VOLUME 100.6 fL CALC (80.0-100.0); MEAN CORPUSCULAR HGB 32.5 pG CALC (26.0-32.0); MEAN CORPUSCULAR HGB CONC 32.3 g/dL CAL (32.0-36.0); MONO% 10.2 % (2-13); NEUT# 3.25 thou/uL (2.00-7.15); NEUT% 70.1 % (42-76); RED BLOOD COUNT 3.23 mill/uL (4.20-5.60); RED CELL DISTRI WIDTH 12.9 % (11.5-15.5)
[2023-07-29 07:02] LABS: ALBUMIN 2.8 g/dL (3.2-5.0); ALKALINE PHOSPHATASE 94 u/l (38-126); ANION GAP 9 (6-22 (CALC)); BILIRUBIN, TOTAL 1.3 mg/dL (0.02-1.3); BUN 20 mg/dL (8-23); BUN/CREATININE RATIO 25 (12-20 (CALC)); CARBON DIOXIDE 27 mmol/l (22-30); CHLORIDE 98 mmol/l (95-108); CREATININE 0.8 mg/dL (0.5-1.0); GFR FOR AFR.AMER. > 60 ML/MIN (>=60 (CALC)); GFR OTHER RACES > 60 ML/MIN (>=60 (CALC)); MAGNESIUM 1.5 mg/dL (1.6-2.3); POTASSIUM 4.7 mmol/l (3.5-5.1); SGOT/AST 26 u/l (9-36); SODIUM 130 mmol/l (137-146); TOTAL PROTEIN 4.9 g/dL (6.3-8.2)
[2023-07-29 07:04] LABS: INTERNATIONAL NORMALIZED RATIO 1.3 RATIO (0.7-1.3); PROTHROMBIN TIME 12.5 SECONDS (9.0-12.5)
[2023-07-29] MEDS ORDERED: PROTONIX40 M2 PO (09:02)
[2023-07-29 10:27] VITALS: BP 123/46
== END 2023-07-29 11:00 ==
LOC: ED 13:07 → ED-I 17:00 → ED 17:42 → MS2 17:43
PROVIDERS: Nurse Practitioner; Nurse Practitioner Family; ADMIT Student in an Organized Health Care Education/Training Program; ATTEND Student in an Organized Health Care Education/Training Program
DX: D68.32 Hemorrhagic disorder due to extrinsic circulating anticoagulants (principal); K92.2 Gastrointestinal hemorrhage, unspecified; R31.9 Hematuria, unspecified; R23.3 Spontaneous ecchymoses; T45.515A Adverse effect of anticoagulants, initial encounter; E83.42 Hypomagnesemia; I11.0 Hypertensive heart disease with heart failure; I50.9 Heart failure, unspecified; I48.20 Chronic atrial fibrillation, unspecified; J44.9 Chronic obstructive pulmonary disease, unspecified; C79.51 Secondary malignant neoplasm of bone; Z95.828 Presence of other vascular implants and grafts; Z85.3 Personal history of malignant neoplasm of breast
CPT/HCPCS: G0378; J3475; Q9967; S0164

== ENCOUNTER 2023-09-24 08:32 | Inpatient (IN) | payer MEDICARE ==
[2023-09-24] VITALS (16 sets, daily range): BP systolic 98–122; BP diastolic 36–55
[~2023-09-24] VITALS: Ht 167.6 cm; Wt 70.0 kg
[~2023-09-24 08:32] MED LIST changes: +PROTONIX40 M2 PO
--- NOTE | 2023-09-24 08:45 | NUR ---
PT WHEELED BACK TO ER ROOM 6, DAUGHTER AT SIDE
[2023-09-24] MEDS ORDERED: AZITHROMYCIN 500 MG in SODIUM CHLORIDE 0.9% 250 ML IV ONE (09:05)
[2023-09-24] MEDS ORDERED: methylPREDNISolone SODIUM SUCC 125 MG/2 ML SDV IV ONE (09:05)
[2023-09-24] MEDS ORDERED: IPRATROPIUM-Albuterol 0.5MG-2.5MG/3 ML NEB ONE ×2 (09:05)
[2023-09-24] MEDS ORDERED: cefTRIAXone SODIUM 2 GM in SODIUM CHLORIDE 0.9% 100 ML IV ONE (09:05)
--- NOTE | 2023-09-24 09:12 | NUR ---
PT RESTING IN BED, IV STARTED, EKG COMPLETED, LABS COLLECTED, CALL LIGHT WITHIN REACH, DAUGHTER AT SIDE, VSS
[2023-09-24] MEDS ORDERED: FUROSEMIDE 40 MG/4 ML SDV IV ONE (09:30)
[2023-09-24 09:39] LABS: BASO% 0.3 % (0-3); EOS% 1.3 % (0-8); HEMOGLOBIN 10.7 g/dl (12.0-16.0); IMMATURE GRANULOCYTES 0.7 % (0.0-5.0); LYMPH% 13.1 % (15-41); MEAN CORPUSCULAR HGB 32.5 pG CALC (26.0-32.0); MEAN CORPUSCULAR HGB CONC 30.6 g/dL CAL (32.0-36.0); MONO% 10.1 % (2-13); NEUT# 4.49 thou/uL (2.00-7.15); NEUT% 74.5 % (42-76); RED BLOOD COUNT 3.29 mill/uL (4.20-5.60); RED CELL DISTRI WIDTH 15.1 % (11.5-15.5)
[2023-09-24 09:42] LABS: INTERNATIONAL NORMALIZED RATIO 1.1 RATIO (0.7-1.3); PROTHROMBIN TIME 10.4 SECONDS (9.0-12.5)
[2023-09-24 09:43] LABS: MEAN CELL VOLUME 106.4 fL CALC (80.0-100.0)
[2023-09-24 09:48] LABS: ALBUMIN 3.5 g/dL (3.2-5.0); BILIRUBIN, TOTAL 1.1 mg/dL (0.02-1.3); CREATININE 1.9 mg/dL (0.5-1.0); TOTAL PROTEIN 5.8 g/dL (6.3-8.2)
[2023-09-24] MEDS ORDERED: ELIQUIS2.5 MG PO (09:48)
--- NOTE | 2023-09-24 10:13 | NUR ---
PT MEDICATED PER JAZZMINE PIERSON MD AT BEDSIDE UPDATING THE PT ON THE PLAN OF CARE
[2023-09-24] MEDS ORDERED: MAGNESIUM HYDROXIDE 30 ML UDC PO PRN (10:20)
[2023-09-24] MEDS ORDERED: ACETAMINOPHEN 325 MG/TAB PO PRN (10:20)
[2023-09-24] MEDS ORDERED: SODIUM CHLORIDE 0.9% 1,000 ML IV PRN (10:20)
--- NOTE | 2023-09-24 11:15 | NUR ---
PT RESTING IN BED, DAUGHTER AT BEDSIDE, PT DEINES ANY NEEDS AT THIS TIME
--- NOTE | 2023-09-24 12:30 | NUR ---
Reassessment of patient completed. No distress noted. PT ASKING FOR LUNCH, INFORMED THE PT THAT I HAVE A LUNCH TRAY ORDERED FOR HER, WAITING FOR IT TO COME FROM, PT DENIES ANY OTHER NEEDS AT THIS TIME
--- NOTE | 2023-09-24 13:30 | NUR ---
READJUSTED PT, GAVE PT A LUNCH TRAY, PT SITTING UP IN BED EATTING
--- NOTE | 2023-09-24 13:46 | NUR ---
CALLED [facility], SPOKE WITH CHAS, GAVE PT INFO, PT TO BE TRANSPORTED TO [facility] ROOM [address]
--- NOTE | 2023-09-24 14:20 | NUR ---
pt transported to [facility] room 270, pt tolerated well, daughter at side, pt took all belongings with her at time of transport
[2023-09-24] MEDS ORDERED: [UNRECOGNIZED DRUG - OTHER] PO (15:27)
[2023-09-24] MEDS ORDERED: traMADol HCL 50 MG/TAB PO SCH (15:30)
--- NOTE | 2023-09-24 15:30 | NUR ---
RECEIVED FROM ER, ALERT ORIENTED X3 WITH FORGETFULNESS. DAUGHTER IN ROOM. ADMISSION ASSESSMENT COMPLETED. MEDICATED WITH PO TRAMADOL AND ROBAXIN FOR C/O BACK PAIN. FALL BRACELET PLACED ON PATIENT AND BED ALARM ACTIVATED DUE TO FORGETFULNESS.
[2023-09-24] MEDS ORDERED: IPRATROPIUM-Albuterol 0.5MG-2.5MG/3 ML NEB PRN (15:55)
[2023-09-24] MEDS ORDERED: METHOCARBAMOL 500 MG/TAB PO SCH (17:00)
--- NOTE | 2023-09-24 20:00 | NUR ---
awake. no resp diff. o2 cont per nc. tele shows sinus rhythm with paced beats. ivf infusing per rac site. pure wick cath in place. urine clear yellow. fall precautions & bed alarm conts.
[2023-09-24] MEDS ORDERED: FUROSEMIDE 40 MG/4 ML SDV IV SCH (21:00)
[2023-09-24] MEDS ORDERED: CARVEDILOL 25 MG/TAB PO SCH (21:00)
[2023-09-24] MEDS ORDERED: Heparin SODIUM (Porcine) 5,000 UNITS/ML SDV SC SCH (21:00)
[2023-09-24] MEDS ORDERED: ANASTROZOLE 1 MG PO SCH (21:00)
[2023-09-24] MEDS ORDERED: ENOXAPARIN SODIUM 40 MG/0.4 ML SYR SC SCH (21:00)
--- NOTE | 2023-09-25 00:01 | NUR ---
awake. watching tv. tele shows sinus rhythm paced beats.
[2023-09-25 03:46] VITALS: BP 103/42
--- NOTE | 2023-09-25 04:27 | NUR ---
PT RESTING COMFORTABLY. REPOSITIONED PT AND PERWICK PLACEMENT. HAS NO COMPLAINTS AT THIS TIME. CALL LIGHT IN REACH
[2023-09-25 05:31] LABS: BASO% 0.2 % (0-3); HEMATOCRIT 29.7 % (37.0-47.0); HEMOGLOBIN 9.3 g/dl (12.0-16.0); IMMATURE GRANULOCYTES 0.6 % (0.0-5.0); LYMPH% 14.1 % (15-41); MEAN CELL VOLUME 104.6 fL CALC (80.0-100.0); MEAN CORPUSCULAR HGB 32.7 pG CALC (26.0-32.0); MEAN CORPUSCULAR HGB CONC 31.3 g/dL CAL (32.0-36.0); MONO% 4.9 % (2-13); NEUT# 3.74 thou/uL (2.00-7.15); NEUT% 80.2 % (42-76); RED BLOOD COUNT 2.84 mill/uL (4.20-5.60); RED CELL DISTRI WIDTH 14.4 % (11.5-15.5)
[2023-09-25 05:48] LABS: CREATININE 1.5 mg/dL (0.5-1.0); POTASSIUM 5.1 mmol/l (3.5-5.1)
[2023-09-25 06:07] LABS: MAGNESIUM 2.2 mg/dL (1.6-2.3)
--- NOTE | 2023-09-25 06:36 | NUR ---
PT HAD NO COMPLAINTS OF PAIN BUT STILL WANTED TO TAKE THE TRAMADOL PER ORDERS. PT A+O , V/S STABLE. CALL LIGHT IN REACH
[2023-09-25 07:11] VITALS: BP 103/42
[2023-09-25] MEDS ORDERED: STIOLTO RESPIMAT IN SCH ×2 (09:00→10:30)
[2023-09-25] MEDS ORDERED: APIXABAN BASE 2.5 MG/TAB TAB PO SCH (09:00)
[2023-09-25] MEDS ORDERED: PANTOPRAZOLE SODIUM Sesquihydr 40 MG/TAB PO SCH (09:00)
[2023-09-25] MEDS ORDERED: LOSARTAN Potassium 50 MG/TAB PO SCH (09:00)
[2023-09-25 10:48] VITALS: BP 115/50
[2023-09-25] MEDS ORDERED: LIDOCAINE 4 % PATCH TD SCH (13:00)
[2023-09-25 14:43] VITALS: BP 107/54
[2023-09-25] MEDS ORDERED: METHOCARBAMOL 500 MG/TAB PO SCH (15:00)
[2023-09-25 19:13] VITALS: BP 100/42
--- NOTE | 2023-09-25 20:00 | NUR ---
RECEIVED REPORT FROM NURSE JAGUAR, PATIENT SITTING IN BED, WATCHING TV, PATIENT ALERT ORIENTEDTO NAME AND PLACE, NOT TO TIME, PATIENT IV ON RAC G 20 SALINE LOCK, PATENT FLUSHES WELL HOOKED ON TELEMETRY, ON 02 @ 2LPM VIA NC, PATIENT NOT O2 DEPENDENT, PATIENT C/O BACK PAIN ASKING MUSCLE RELAXER, WILL MEDICATE. AQUACEL NOTED ON BUTTOCK, PATINET RESPOSITIONED, CALL LIGHT IN REACH.
[2023-09-25 20:17] VITALS: BP 110/39
[2023-09-26] VITALS (7 sets, daily range): BP systolic 98–132; BP diastolic 39–50
--- NOTE | 2023-09-26 | NUR ---
PATIOTRI C/O PAIN ON BACK,PATIENT REPOSITIONED, BRIA ON LEFT SIDE LYING POSITION, CALL LIGHT IN REACHED.
--- NOTE | 2023-09-26 04:00 | NUR ---
PATINETR RESTING IN BED, NOT IN DISTRESS, BREATHING UNLABORED REMAINS ON 02 @ 2LPM VIA NC.
[2023-09-26 05:00] LABS: BASO% 0.1 % (0-3); EOS% 0.3 % (0-8); HEMATOCRIT 31.3 % (37.0-47.0); HEMOGLOBIN 9.9 g/dl (12.0-16.0); IMMATURE GRANULOCYTES 0.9 % (0.0-5.0); LYMPH% 12.1 % (15-41); MEAN CELL VOLUME 105.7 fL CALC (80.0-100.0); MEAN CORPUSCULAR HGB 33.4 pG CALC (26.0-32.0); MEAN CORPUSCULAR HGB CONC 31.6 g/dL CAL (32.0-36.0); MONO% 9.5 % (2-13); NEUT# 6.12 thou/uL (2.00-7.15); NEUT% 77.1 % (42-76); RED BLOOD COUNT 2.96 mill/uL (4.20-5.60); RED CELL DISTRI WIDTH 14.6 % (11.5-15.5)
[2023-09-26 05:05] LABS: CREATININE 1.4 mg/dL (0.5-1.0)
[2023-09-26 05:13] LABS: POTASSIUM 5.2 mmol/l (3.5-5.1)
[2023-09-26] MEDS ORDERED: SODIUM ZIRCONIUM CYCLOSILICATE 10 GM PAK PO SCH (09:00)
[2023-09-26] MEDS ORDERED: FUROSEMIDE 40 MG/4 ML SDV IV SCH ×2 (09:00)
--- NOTE | 2023-09-26 20:00 | NUR ---
RECEIVED REPORT FROM NURSE JAGUAR, PATEINT RESTING IN BED, WATCHING TV, ALERT TO NAME, PLACED, IV ON RAC G 20 SALINE LOCK, LUNG SOUND DIMINISHED, O2 @2PM VIA NC, NOT IN DISTRESS, ON TELMETRY PACED 61, PUREWICK DRAINING YELLOW COLORED URINE, NOT IN DISTRESS, CALL LIGHT IN REACHED.
[2023-09-26] MEDS ORDERED: STIOLTO RESPIMAT IN SCH (21:00)
--- NOTE | 2023-09-27 | NUR ---
PATIENT RESTING IN BED, NOT IN DISTRESS, PATIENT TURNED ON LEFT SIDE, CALL LIGHT IN REACHED.
[2023-09-27 00:16] VITALS: BP 104/29
[2023-09-27 04:28] VITALS: BP 106/36
[2023-09-27 04:52] LABS: HEMATOCRIT 32.2 % (37.0-47.0); HEMOGLOBIN 10.2 g/dl (12.0-16.0); IMMATURE GRANULOCYTES 0.6 % (0.0-5.0); LYMPH% 17.2 % (15-41); MEAN CELL VOLUME 105.9 fL CALC (80.0-100.0); MEAN CORPUSCULAR HGB 33.6 pG CALC (26.0-32.0); MEAN CORPUSCULAR HGB CONC 31.7 g/dL CAL (32.0-36.0); MONO% 12.8 % (2-13); NEUT# 3.32 thou/uL (2.00-7.15); NEUT% 67.4 % (42-76); RED BLOOD COUNT 3.04 mill/uL (4.20-5.60); RED CELL DISTRI WIDTH 14.4 % (11.5-15.5)
[2023-09-27 05:05] LABS: CREATININE 1.3 mg/dL (0.5-1.0); POTASSIUM 4.2 mmol/l (3.5-5.1)
[2023-09-27 07:42] VITALS: BP 130/33
--- NOTE | 2023-09-27 08:00 | NUR ---
PT IS UP IN CHAIT AT BEDSIDE. PT IS ALERT AND ORIENTED X3 WITH CONFUSION AT TIMES. PT IV SITE TO RAC CLEAN AND INTACT, SL. PT TELE ON WITH ALL LEADS ATTACHED. PT LUNGS CLEAR AND BREATHING NON LABORED; CONTINUES TO WEAR O2 @ 2 LITERS VIA NC. PT ABD IS SOFT WITH ACTIVE BS. PT HAS PUREWICK IN PLACE. PT AMBULATES WITH ONE ASSIST. PT HAS CALL LIGHT WITHIN REACH AND SAFETY MEASURES IN PLACE AT THIS TIME.
[2023-09-27 11:05] VITALS: BP 119/35
[2023-09-27 11:11] VITALS: BP 131/79
[2023-09-27] MEDS ORDERED: LIDOCAINE PAIN RE4 % TD (11:59)
[2023-09-27] MEDS ORDERED: METHOCARBAMOL500 MG PO (12:00)
--- NOTE | 2023-09-27 12:00 | NUR ---
PT SITTING UP IN CHAIR AT BEDSIDE, EATING LUNCH. PT HAS NO C/O PAIN AT THIS TIME. PT HAS CALL LIGHT WITHIN REACH AND SAFETY MEASURES IN PLACE AT THIS TIME.
[2023-09-27] MEDS ORDERED: LOSARTAN POTASS50 MG PO (12:01)
[2023-09-27] MEDS ORDERED: LASIX 40 MG TAB40 MG PO (12:02)
--- NOTE | 2023-09-27 14:01 | NUR ---
Discharge instructions given. Patient verbalizes understanding of same. Discharged in stable condition via Wheelchair to Home with family. All belongings sent with pt.
== END 2023-09-27 14:03 | disposition home or self-care (01) | DRG 291 ==
LOC: ED 08:32 → ED-I 09:45 → ED 10:20 → ED-I 10:21 → MS2 13:06
PROVIDERS: Family Medicine; ADMIT Student in an Organized Health Care Education/Training Program; ATTEND Student in an Organized Health Care Education/Training Program
DX: I11.0 Hypertensive heart disease with heart failure (principal); J96.01 Acute respiratory failure with hypoxia; N17.9 Acute kidney failure, unspecified; I48.11 Longstanding persistent atrial fibrillation; I50.9 Heart failure, unspecified; E87.5 Hyperkalemia; J44.9 Chronic obstructive pulmonary disease, unspecified; G47.30 Sleep apnea, unspecified; T17.928A Food in respiratory tract, part unspecified causing other injury, initial encounter; W44.F3XA Food entering into or through a natural orifice, initial encounter; Z90.12 Acquired absence of left breast and nipple; Z95.828 Presence of other vascular implants and grafts; Z85.3 Personal history of malignant neoplasm of breast; Z79.01 Long term (current) use of anticoagulants; Z20.822 Contact with and (suspected) exposure to COVID-19; Z45.2 Encounter for adjustment and management of vascular access device

== ENCOUNTER 2023-10-03 23:21 | Inpatient (IN) | payer MEDICARE ==
[~2023-10-03] VITALS: Ht 167.6 cm; Wt 71.0 kg
[2023-10-03] VITALS (9 sets, daily range): BP systolic 70–108; BP diastolic 36–52
[~2023-10-03 23:21] MED LIST changes: +ELIQUIS2.5 MG PO; +LASIX 40 MG TAB40 MG PO; +LIDOCAINE PAIN RE4 % TD; +LOSARTAN POTASS50 MG PO; +METHOCARBAMOL500 MG PO; +[UNRECOGNIZED DRUG - OTHER] PO
--- NOTE | 2023-10-03 23:21 | NUR ---
ARRIVED VIA EMS INTUBATED AND BEING BAGGED WITH BVM. PWD. IV PORT IN LEFT AC.
[2023-10-03] MEDS ORDERED: PROPOFOL 100 ML IV ONE ×2 (23:25→23:35)
[2023-10-03] MEDS ORDERED: VANCOMYCIN HCL 1 GM in SODIUM CHLORIDE 0.9% 250 ML IV STA (23:30)
[2023-10-03] MEDS ORDERED: AZTREONAM 2 GM in SODIUM CHLORIDE 0.9% 100 ML IV STA (23:30)
[2023-10-03] MEDS ORDERED: SODIUM CHLORIDE 0.9% 1,000 ML BAG IV ONE (23:30)
[2023-10-03] MEDS ORDERED: methylPREDNISolone SODIUM SUCC 125 MG/2 ML SDV IV ONE (23:35)
[2023-10-03] MEDS ORDERED: SODIUM CHLORIDE 0.9% 500 ML IV ONE (23:55)
[2023-10-03] MEDS ORDERED: NOREPINEPHRINE BITARTRATE 4 MG in DEXTROSE 5% 250 ML IV ONE (23:55)
[2023-10-04] VITALS (133 sets, daily range): BP systolic 73–171; BP diastolic 31–135
[2023-10-04 00:22] LABS: BASO% 0.1 % (0-3); EOS% 0.1 % (0-8); HEMATOCRIT 36.9 % (37.0-47.0); HEMOGLOBIN 10.6 g/dl (12.0-16.0); LYMPH% 10.6 % (15-41); MEAN CORPUSCULAR HGB 32.5 pG CALC (26.0-32.0); MEAN CORPUSCULAR HGB CONC 28.7 g/dL CAL (32.0-36.0); MONO% 4.4 % (2-13); NEUT# 9.02 thou/uL (2.00-7.15); NEUT% 82.8 % (42-76); RED BLOOD COUNT 3.26 mill/uL (4.20-5.60); RED CELL DISTRI WIDTH 13.9 % (11.5-15.5)
[2023-10-04 00:29] LABS: MEAN CELL VOLUME 113.2 fL CALC (80.0-100.0)
[2023-10-04 00:34] LABS: ALBUMIN 3.7 g/dL (3.2-5.0); BILIRUBIN, TOTAL 0.8 mg/dL (0.02-1.3); CREATININE 1.4 mg/dL (0.5-1.0); TOTAL PROTEIN 6.3 g/dL (6.3-8.2)
[2023-10-04 00:37] LABS: ACT PARTIAL THROMBO TIME 25.9 SECONDS (20.0-32.5); INTERNATIONAL NORMALIZED RATIO 1.1 RATIO (0.7-1.3); PROTHROMBIN TIME 10.8 SECONDS (9.0-12.5)
[2023-10-04 00:46] LABS: POTASSIUM 6.1 mmol/l (3.5-5.1)
[2023-10-04] MEDS ORDERED: CALCIUM GLUCONATE 2 GM in SODIUM CHLORIDE 0.9% 100 ML IV ONE (00:55)
[2023-10-04] MEDS ORDERED: DEXTROSE 50% 50 ML/SYR IV ONE (00:55)
[2023-10-04] MEDS ORDERED: ALBUTEROL SULFATE 2.5 MG VIAL NEB ONE (01:00)
[2023-10-04] MEDS ORDERED: SODIUM BICARBONATE 8.4% 50 ML/SYR IV ONE (01:00)
[2023-10-04] MEDS ORDERED: INSULIN REGULAR (HUMAN) 100 UNIT/ML INJ IV ONE (01:00)
--- NOTE | 2023-10-04 01:00 | NUR ---
FAMILY AT BEDSIDE. PT TOLERATING TREATMENTS. DIPROVAN INCREASED IN INCREMENTS...GENTLY BP SOFT.
[2023-10-04 01:01] LABS: ETHYL ALCOHOL 0 mg/dl (0-30)
[2023-10-04] MEDS ORDERED: DEXTROSE 250 ML IV ONE (01:22)
--- NOTE | 2023-10-04 01:50 | NUR ---
PT TO CT VIA STRETCHER WITH R.T./VENT/RN/IV PROPOFOL INFUSING ON MINDRAY/AND COMPENSATION BUSINESS PARTNER. SCANS COMPLETED WITHOUT INCIDENT. PT RETURNED TO ROOM AND RECONNECTED TO EQUIPT. FAMILY AT BEDSIDE.
[2023-10-04 03:45] LABS: BILIRUBIN, TOTAL 0.8 mg/dL (0.02-1.3); CREATININE 1.2 mg/dL (0.5-1.0); POTASSIUM 4.9 mmol/l (3.5-5.1); TOTAL PROTEIN 5.3 g/dL (6.3-8.2)
[2023-10-04] MEDS ORDERED: MAGNESIUM HYDROXIDE 30 ML UDC PO PRN (04:15)
[2023-10-04] MEDS ORDERED: ACETAMINOPHEN 325 MG/TAB PO PRN (04:15)
[2023-10-04] MEDS ORDERED: SODIUM CHLORIDE 0.9% 1,000 ML IV PRN (04:15)
--- NOTE | 2023-10-04 05:00 | NUR ---
PATIENT/FAMILY UPDATED ON CONTINUOUS PLAN OF CARE, PATIENT REMAINS CONNECTED TO CONTINUOUS MONITORING AT THIS TIME, VSS, PATIENT MEDICTED PER ORDERS AT THIS TIME, GTT TITRATED PER PROTOCOLS AT THIS TIME, URINE OUTPUT NOTED, PATIENT AWAITING TRANSPORT TO FLOOR AT THIS TIME.
--- NOTE | 2023-10-04 05:25 | NUR ---
RT NOTIFIED OF VENT READING etCO2 AT 30-31, VERBALIZED UNDERSTANDING, AWAITING RT AT THIS TIME FOR REDRAW OF ABG AND FURTHER EVALUATION, VENT IN PLACE PER RT SETTINGS AT THIS TIME.
[2023-10-04] MEDS ORDERED: ALBUTEROL SULFATE 8 GM INH IN SCH (07:00)
--- NOTE | 2023-10-04 07:39 | NUR ---
REPORT GIVEN TO DONALD ON ICU. PT IS GOING TO BED 3
--- NOTE | 2023-10-04 08:25 | NUR ---
PT ARRIVED TO ICU BY STRETCHER. PT WAS REPORTEDLY INTUBATED BY EMS YESTERDAY AFTER FAMILY FOUND HER UNRESPONSIVE. PT IS REPORTED TO NOT WEAR HER OXYGEN AT HOME LIKE SHE IS SUPPOSED TO. PT CURRENTLY SEDATED WITH PROPOFOL FOR RASS -2 AND BP MAINTAINED WITH LEVOPHED. PT RESTRAINED DUE TO ATTEMPTS TO REACH FOR ET TUBE. ORAL SUCTIONING PERFORMED. PT REPOSITIONED. SLIGHT MURMUR AUSCULTATED; PT IS NSR WITH OCCASIONAL PACER SPIKES AND PVC'S ON MONITOR. PULSES STRONG ALL EXTREMETIES. REDDENED BOTTOM. NO EDEMA. PT TOLERATING CURRENT VENT SETTINGS WELL.
[2023-10-04] MEDS ORDERED: NOREPINEPHRINE BITARTRATE 4 MG in DEXTROSE 5% 250 ML IV PRN (08:35)
[2023-10-04] MEDS ORDERED: PROPOFOL 100 ML IV SCH (08:35)
--- NOTE | 2023-10-04 10:00 | NUR ---
ORAL CARE AND REPOSITIONING PERFORMED. RESTRAINTS REMOVED AND REAPPLIED DUE TO PT REACHING FOR LINES. FAMILY REMAINS AT BEDSIDE. PT ADEQUATELY SEDATED WITH PROPOFOL AND BP MAINTAINED WITH LEVOPHED GTT.
--- NOTE | 2023-10-04 12:00 | NUR ---
PT REMAINS STABLE, NO CHANGES TO STATUS. FAMILY MEMBERS SPEAKING WITH DR. SPENCE. FAMILY CONFIRMS THAT THEY WOULD LIKE PT TO BE DNR AND WOULD LIKE HOSPICE CONSULT. FAMILY INFORMED THAT HOSPICE WILL NOT TAKE INTUBATE PTS. FAMILY LEFT TO GET LUNCH AND DISCUSS HOW TO PROCEED. CASE MANAGEMENT NOTIFIED.
[2023-10-04] MEDS ORDERED: MAGNEBIND400 MG PO (12:13)
[2023-10-04] MEDS ORDERED: CALCIUM PO (12:15)
[2023-10-04] MEDS ORDERED: [UNRECOGNIZED DRUG - OTHER] PO (12:15)
[2023-10-04] MEDS ORDERED: IPRATROPIU0.5 MG/3 M IN (12:17)
--- NOTE | 2023-10-04 13:49 | NUR ---
FAMILY AT BEDSIDE. NO CHANGES TO PT STATUS. VSS.
--- NOTE | 2023-10-04 14:05 | NUR ---
DR. SPENCE AT BEDSIDE TO ASSESS PT AND SPEAK WITH FAMILY WHO IS AT BEDSIDE.
[2023-10-04] MEDS ORDERED: MORPHINE SULFATE 4 MG/ML VIAL IV PRN (14:10)
[2023-10-04] MEDS ORDERED: GLYCOPYRROLATE 0.2 MG/ML IV SCH (14:10)
--- NOTE | 2023-10-04 14:19 | NUR ---
FAMILY CONFIRMED THAT THEY WOULD LIKE TERMINAL EXTUBATION AND COMFORT MEASURES. WEANING PT OFF OF SEDATION BEFORE EXTUBATION. FAMILY REMAINS AT BEDSIDE.
--- NOTE | 2023-10-04 14:34 | NUR ---
PHONE CALL PLACED TO [facility] PRIOR TO TERMINAL EXTUBATION. SPOKE WITH JONATHAN. REFERENCE NUMBER [id number]
[2023-10-04] MEDS ORDERED: MIDAZOLAM HCL 2 MG/2 ML VIAL IV SCH (15:05)
--- NOTE | 2023-10-04 15:15 | NUR ---
PHONE CALL RETURNED FROM [facility]. WILL RETURN CALL AT TIME OF CARDIAC . [facility] CLOSING OUT [employer]GAN DONATION PART OF CASE.
[2023-10-04] MEDS ORDERED: MIDAZOLAM HCL 2 MG/2 ML VIAL IV PRN (15:20)
[2023-10-04] MEDS ORDERED: HYOSCYAMINE SULFATE 0.125 MG TAB SL PRN (15:25)
[2023-10-04] MEDS ORDERED: SCOPOLAMINE 1.5 MG DIS TD PRN (15:25)
--- NOTE | 2023-10-04 15:45 | NUR ---
PT TERMINALLY EXTUBATED. FAMILY AWARE AND AGREES TO PLAN BUT WISHED TO LEAVE ROOM FOR EVENT.
--- NOTE | 2023-10-04 16:44 | NUR ---
PT DOING WELL. ON NRB MASK. LEVOPHED GTT TITRATED OFF. FAMILY REMAINS AT BEDSIDE. AWAITING HOSPICE TO CONTACT FAMILY.
--- NOTE | 2023-10-04 18:10 | NUR ---
PHONE CALL RECIEVED FROM HOSPICE. UPDATED ON PT STATUS. LIKELY THAT HOSPICE NURSE WILL BE ABLE TO ASSESS PT TONIGHT. FAMILY MEMBER REMAINS AT BEDSIDE.
--- NOTE | 2023-10-04 19:00 | NUR ---
REPORT RECEVIED FROM OFF GOING NURSE. HOSPICE NURSE ADDIE PRESENT AT THIS TIME. POC CARE DISCUSSED WITH ADDIE. DR. SPENCE ALSO AWARE OF PLAN OF CARE. FAMILY AT BEDSIDE.
--- NOTE | 2023-10-04 20:00 | NUR ---
PATIENT NOTED LYING IN BED WITH NON REBREATHER AT THIS TIME. HER BP NOTED LOW AT THIS TIME. HER RESPIRATIONS ARE EVEN AND UNLABORED AT THIS TIME. SHE IS ON COMFORT MEASURSES. FLUIDS HAVE BEEN STOPPED. ASSESSMENT COMPLETD (SEE INTERVENTIONS). PATIENT WILL REMAIN INPATIENT ON HOSPICE AT THIS TIME. WILL CONTINUE TO MEDICATE, MONITOR, AND KEEP PATIENT COMFORTABLE. FAMILY IS AT BEDSIDE TO STAY WITH PATIENT.
[2023-10-04] MEDS ORDERED: ENOXAPARIN SODIUM 40 MG/0.4 ML SYR SC SCH (21:00)
[2023-10-05] VITALS (56 sets, daily range): BP systolic 75–112; BP diastolic 16–56
== END 2023-10-04 20:31 | disposition hospice, inpatient (51) | DRG 208 ==
LOC: ED 23:21 → ED-I 10-04 03:30 → ED 10-04 04:14 → ICU 10-04 04:15
PROVIDERS: Emergency Medicine; ADMIT Internal Medicine; ATTEND Internal Medicine
PROC: 0T9B70Z Drainage of Bladder with Drainage Device, Via Natural or Artificial Opening (ICD-10-PCS; principal; 2023-10-03)
PROC: 5A1935Z Respiratory Ventilation, Less than 24 Consecutive Hours (ICD-10-PCS; 2023-10-03)
PROC: 3E033XZ Introduction of Vasopressor into Peripheral Vein, Percutaneous Approach (ICD-10-PCS; 2023-10-04)
DX: U07.1 COVID-19 (principal); J12.82 Pneumonia due to coronavirus disease 2019; J96.01 Acute respiratory failure with hypoxia; J96.02 Acute respiratory failure with hypercapnia; C79.51 Secondary malignant neoplasm of bone; N17.9 Acute kidney failure, unspecified; J44.0 Chronic obstructive pulmonary disease with (acute) lower respiratory infection; I95.9 Hypotension, unspecified; E87.5 Hyperkalemia; I11.0 Hypertensive heart disease with heart failure; I50.9 Heart failure, unspecified; I48.91 Unspecified atrial fibrillation; C50.912 Malignant neoplasm of unspecified site of left female breast; Z51.5 Encounter for palliative care; Z66 Do not resuscitate; T41.5X6A Underdosing of therapeutic gases, initial encounter; Z91.128 Patient's intentional underdosing of medication regimen for other reason; Z90.12 Acquired absence of left breast and nipple; Z99.81 Dependence on supplemental oxygen
CPT/HCPCS: Q9967

== ENCOUNTER 2023-10-04 20:32 | Inpatient (IN) | payer OTHER, MEDICARE ==
[~2023-10-04] VITALS: Ht 167.6 cm; Wt 71.0 kg
[~2023-10-04 20:32] MED LIST changes: +CALCIUM PO; +IPRATROPIU0.5 MG/3 M IN; +MAGNEBIND400 MG PO; +[UNRECOGNIZED DRUG - OTHER] PO
--- NOTE | 2023-10-05 02:45 | NUR ---
SISTER NOTED IN ROOM HOLDING PATIENTS HANDS DOWN. PATIENT NOTED AGITATED AT THIS TIME. SISTER JUST LOST HER LAST MONTH. SHE IS NOTED VERY TEARFUL AT THIS TIME. SHE WAS GIVEN EXTENSIVE EDUCATION REGARDING END OF LIFE CARE. SHE WAS ADVISED TO STEP OUT AND TAKE A WALK TO CALM DOWN. SHE DECIDED IT WAS A GREAT IDEA TO DO SO ALSO.
[2023-10-05] MEDS ORDERED: SCOPOLAMINE 1.5 MG DIS TD PRN (04:45)
[2023-10-05] MEDS ORDERED: MIDAZOLAM HCL 2 MG/2 ML VIAL IV PRN (04:50)
[2023-10-05] MEDS ORDERED: HYOSCYAMINE SULFATE 0.125 MG TAB SL PRN (04:50)
[2023-10-05] MEDS ORDERED: MORPHINE SULFATE 4 MG/ML VIAL IV PRN (04:50)
--- NOTE | 2023-10-05 07:28 | NUR ---
REPORT RECIEVED FROM NIGHT RN. PT IS COMFORT MEASURES ONLY, AND WILL HOPEFULLY BE ABLE TO TRANSFER TO HOSPICE HOUSE TODAY. PT IN BED EYES CLOSED, AROUSABLE WHEN STIMULATED. PT IS ON 2L NC; BREATHING LABORED. FAMILY AT BEDSIDE. VSS AT THIS TIME. MEDICATED PER MAR TO EASE EFFORT OF BREATHING AND REDUCE PAIN.
--- NOTE | 2023-10-05 10:38 | NUR ---
NO CHANGES TO PT STATUS. PT REPOSITIONED AND MEDICATED PER ORDERS. PT'S DAUGHTER AT BEDSIDE.
--- NOTE | 2023-10-05 12:00 | NUR ---
HOSPICE NURSE AT BEDSIDE TO ASSESS PT AND SPEAK WITH FAMILY. PT REPOSITIONED. STABLE AT THIS TIME.
--- NOTE | 2023-10-05 13:45 | NUR ---
MEDICAL TRANSPORT HERE TO TAKE PT TO HOSPICE HOUSE. IMFORMATION PACKET GIVEN TO TRANSPORTATION, INCLUDING COPY OF DNR. PT'S DAUGHTER AWARE OF TRANSFER.
== END 2023-10-05 13:45 | disposition hospice, inpatient (51) | DRG 951 ==
LOC: ICU 20:32
PROVIDERS: ADMIT Student in an Organized Health Care Education/Training Program; ATTEND Student in an Organized Health Care Education/Training Program
DX: Z51.5 Encounter for palliative care (principal); U07.1 COVID-19; J12.82 Pneumonia due to coronavirus disease 2019; J96.02 Acute respiratory failure with hypercapnia; J96.01 Acute respiratory failure with hypoxia; C79.51 Secondary malignant neoplasm of bone; J44.0 Chronic obstructive pulmonary disease with (acute) lower respiratory infection; N17.9 Acute kidney failure, unspecified; E87.5 Hyperkalemia; I95.9 Hypotension, unspecified; I11.0 Hypertensive heart disease with heart failure; I50.9 Heart failure, unspecified; I48.91 Unspecified atrial fibrillation; C50.912 Malignant neoplasm of unspecified site of left female breast; Z66 Do not resuscitate; T41.5X6A Underdosing of therapeutic gases, initial encounter; Z91.128 Patient's intentional underdosing of medication regimen for other reason; Z90.12 Acquired absence of left breast and nipple; Z99.81 Dependence on supplemental oxygen